=== PATIENT | female | born 2000 | race American Indian/Alaskan Native ===

== ENCOUNTER 2025-04-17 18:19 | Emergency (ER) | payer SELFPAY ==
[2025-04-17 18:56] LABS: APPEARANCE,URINE CLEAR; GLUCOSE,URINE NEGATIVE (NEGATIVE); OCCULT BLOOD,URINE NEGATIVE (NEGATIVE)
[2025-04-17 19:10] LABS: EPITHELIAL CELLS,URINE RARE (NONE-FEW)
[2025-04-17 19:57] LABS: CANDIDA DNA PROBE NEGATIVE (NEGATIVE); GARDNERELLA DNA PROBE POSITIVE (NEGATIVE); TRICHOMONAS DNA PROBE NEGATIVE (NEGATIVE)
[2025-04-17 20:25] LABS: C. TRACHOMATIS BY PCR NOT DETECTED; N. GONORRHOEAE BY PCR NOT DETECTED
== END 2025-04-17 20:20 | disposition home or self-care (01) ==
LOC: MW.ED 18:19
DX: N76.0 Acute vaginitis (principal)
CPT/HCPCS: 81001; 87480; 87491; 87510; 87591; 87660; 99283; A9270